=== PATIENT | female | born 1930 | race Caucasian/White ===

== ENCOUNTER 2016-07-16 18:52 | Inpatient (IN) | payer OTHER, MEDICAID ==
[2016-07-16] MEDS ORDERED: BENADRYL INJ 50 MG VIAL IVP ONE (19:12)
[2016-07-16] MEDS ORDERED: TYLENOL 325 MG TAB PO ONE (19:17)
[2016-07-16 21:29] VITALS: BMI 17.9
[2016-07-16 22:01] LABS: BASOPHILS # (AUTO) 0.1 X10^3/uL (0.0-0.1); BASOPHILS % (AUTO) 0.5 % (0.2-1.0); EOSINOPHILS % (AUTO) 0.4 % (0.9-2.9); LYMPHOCYTES # (AUTO) 0.9 X10^3/uL (1.3-2.9); MEAN CORPUSCULAR HEMOGLOBIN 19.6 pg (27.0-34.0); MEAN CORPUSCULAR HGB CONC 30.9 g/dL (33.0-35.0); MEAN CORPUSCULAR VOLUME 63.3 fL (80.0-100.0); MEAN PLATELET VOLUME 6.3 fL (7.4-11.0); MONOCYTES # (AUTO) 1.1 x10^3/uL (0.3-0.8); MONOCYTES % (AUTO) 9.5 % (0.0-13.0); NEUTROPHILS # (AUTO) 9.7 x10^3/uL (2.2-4.8); NEUTROPHILS % (AUTO) 81.6 % (42.0-75.0); PLATELET COUNT 606 X10^3/uL (150.0-450.0); WHITE BLOOD COUNT 11.8 X10^3/uL (3.6-10.0)
[2016-07-16 22:10] LABS: ALBUMIN 2.7 g/dL (3.4-5.0); CALCIUM 9.2 mg/dL (8.5-10.1); CARBON DIOXIDE 27.9 mmol/L (21-32); COR CA(FOR HYPOALB) 10.2 mg/dL (8.5-10.1); CREATININE 1.12 mg/dL (0.55-1.02); TOTAL PROTEIN 6.5 g/dL (6.4-8.2)
[2016-07-16 22:11] LABS: HEMOGLOBIN 6.1 g/dL (12.0-16.0)
[2016-07-16 22:12] LABS: HEMATOCRIT 19.6 % (36.0-47.0)
[2016-07-16 22:26] LABS: ANISOCYTOSIS 1+; HYPOCHROMASIA 3+; MICROCYTOSIS 2+; PLATELET MORPHOLOGY COMMENT NORMAL (NORMAL)
[2016-07-16 22:41] LABS: BILIRUBIN,URINE NEGATIVE (NEGATIVE); BLOOD/HEMOGLOBIN,URINE NEGATIVE (NEGATIVE); GLUCOSE, URINE NEGATIVE (NEGATIVE); KETONES,URINE NEGATIVE (NEGATIVE); LEUKOCYTE ESTERASE ,URINE 2+ (NEGATIVE); NITRITES,URINE NEGATIVE (NEGATIVE); PROTEIN,URINE 1+ (NEGATIVE); UROBILINOGEN,URINE NORMAL (NORMAL)
[2016-07-16 22:57] LABS: AMORPHOUS SEDIMENT,UR TRACE /HPF (NEGATIVE); APPEARANCE,URINE CLEAR (CLEAR); BACTERIA,URINE TRACE /HPF (NEGATIVE); COLOR,URINE YELLOW (YELLOW); MUCUS,URINE FEW /HPF (NEGATIVE); RBC,URINE 0-1 /HPF (NEGATIVE); RENAL EPITHELIAL CELLS,URINE RARE /HPF (NEGATIVE); SQUAMOUS EPITHELIAL CELL,UR FEW /HPF (NEGATIVE)
[2016-07-16] MEDS: NS 1000 ML 1,000 ML IV PRN (23:15)
[2016-07-16] MEDS: PROTONIX INJ 40 MG VIAL IVP SCH (23:15)
[2016-07-17] MEDS ORDERED: BENADRYL INJ 50 MG VIAL ONE (00:46)
[2016-07-17] MEDS ORDERED: TYLENOL 325 MG TAB PO ONE (00:46)
[2016-07-17] MEDS: NS 250 ML IV 250 ML IV PRN ×2 (00:56→21:38)
--- NOTE | 2016-07-17 03:32 | RAD ---
Chest AP portable Indication: Anemia. Comparison: December 03, 2015. Findings: There is no pneumothorax or effusion. There is no consolidation. Lungs are hyperinflated. Scarring is seen in the right upper lobe. Heart size normal. Impression: Borderline COPD change without other acute abnormality. Reported By:
[2016-07-17 09:04] LABS: BASOPHILS # (AUTO) 0.1 X10^3/uL (0.0-0.1); BASOPHILS % (AUTO) 1.5 % (0.2-1.0); EOSINOPHILS # (AUTO) 0.2 x10^3/uL (0.0-0.2); EOSINOPHILS % (AUTO) 1.7 % (0.9-2.9); HEMATOCRIT 27.5 % (36.0-47.0); HEMOGLOBIN 8.9 g/dL (12.0-16.0); LYMPHOCYTES # (AUTO) 0.9 X10^3/uL (1.3-2.9); LYMPHOCYTES % (AUTO) 9.2 % (21.0-51.0); MEAN CORPUSCULAR HEMOGLOBIN 22.1 pg (27.0-34.0); MEAN CORPUSCULAR HGB CONC 32.2 g/dL (33.0-35.0); MEAN CORPUSCULAR VOLUME 68.6 fL (80.0-100.0); MEAN PLATELET VOLUME 6.3 fL (7.4-11.0); MONOCYTES # (AUTO) 1.1 x10^3/uL (0.3-0.8); MONOCYTES % (AUTO) 10.7 % (0.0-13.0); NEUTROPHILS # (AUTO) 7.7 x10^3/uL (2.2-4.8); NEUTROPHILS % (AUTO) 76.9 % (42.0-75.0); PLATELET COUNT 496 X10^3/uL (150.0-450.0); RED BLOOD COUNT 4.01 X10^6/uL (3.5-5.4); RED CELL DISTRIBUTION WIDTH 20.8 % (11.6-16.5); WHITE BLOOD COUNT 10.1 X10^3/uL (3.6-10.0)
[2016-07-17 09:16] LABS: ALANINE AMINOTRANSFERASE 14 Units/L (12-78); ALBUMIN 2.5 g/dL (3.4-5.0); ALKALINE PHOSPHATASE 90 Units/L (46-116); ASPARTATE AMINO TRANSFERASE 14 Units/L (15-37); BLOOD UREA NITROGEN 25 mg/dL (7-18); CALCIUM 8.8 mg/dL (8.5-10.1); CARBON DIOXIDE 27.2 mmol/L (21-32); CHLORIDE 103 mmol/L (98-107); CREATININE 1.08 mg/dL (0.55-1.02); GLUCOSE 91 mg/dL (65-99); SODIUM 136 mmol/L (136-145); TOTAL PROTEIN 6.3 g/dL (6.4-8.2); eGFR BLACK RACES > 60 (>60); eGFR NON BLACK RACES 51 (>60)
[2016-07-17 09:19] LABS: ANISOCYTOSIS 1+; HYPOCHROMASIA 1+; MICROCYTOSIS 1+; PLATELET MORPHOLOGY COMMENT NORMAL (NORMAL)
[2016-07-17] MEDS: PROTONIX INJ 40 MG VIAL IVP SCH ×2 (09:21→21:38)
--- NOTE | 2016-07-17 13:15 | DR.H&P ---
H&P - History & Physical for Day of: H&P Date: 07/16/16 - Chief Complaint Chief Complaint: patient is a 85-year-old white female who was admitted one day ago with severe anemia. Patient denies any pain or history of anemia. Plan to type cross and transfuse 2 units packed red blood cells repeat postinfusion H&H. - Allergies Allergies/Adverse Reactions: Allergies Allergy/AdvReac Type Severity Reaction Status Date / Time Codeine Allergy Verified 09/19/15 16:06 Penicillins Allergy Verified 09/19/15 16:06 - History of Present Illness History of Present Illness: see above - Past Medical History Past Medical History: Alzheimers, Anemia, Arthritis, Dementia - Past Surgical History Surgical History: Appendectomy, Cholecystectomy, Hysterectomy, Joint Replacement , Mastectomy, Other - Family History Family Medical History: [place], Coronary Artery Disease, Sudden Cardiac , Hypertension - Social History Does patient currently use any type of tobacco product: No Have you used tobacco products in the last 12 months: No Type of Tobacco Use: Smokeless Alcohol Use: None Drug Use: None - Medications Home Medications: Acetaminophen [Tylenol] 650 mg PO Q4H PRN 07/16/16 [History Confirmed 07/16/16] Cyanocobalamin 1,000 mcg IM MONTHLY 07/16/16 [History Confirmed 07/16/16] Ferrous Gluconate [Iron 27] 240 mg PO BID 07/16/16 [History Confirmed 07/16/16] Omeprazole [PRILOSEC 20 MG *] 20 mg PO HS 07/16/16 [History Confirmed 07/16/16] - Review of Systems Constitutional: Weakness Eyes: No Symptoms Reported ENT: No Symptoms Reported Respiratory: Shortness of Breath Cardiovascular: No Symptoms Reported Gastrointestinal: No Symptoms Reported Genitourinary: No Symptoms Reported Musculoskeletal: Back Pain, Leg Pain Skin: No Symptoms Reported Neurological: No Symptoms Reported - Physical Exam Vital Signs: Temperature 98.6 F Pulse Rate [Bilateral Radial] 78 Respiratory Rate 20 Blood Pressure [Right Arm] 121/58 Blood Pressure [Left Arm] 127/62 Blood Pressure 117/58 O2 Sat by Pulse Oximetry 99 Oriented: Normal Eyes: Normal Ear: Normal Nose: Normal Throat: Normal Respiratory: RLL Diminished, LLL Diminished Cardiovascular: negative: Edema : Normal Tenderness: LUQ, Epigastric Skin: Decreased [place]ur Musculoskeletal: Back:Lumbar Mood Description: Calm Speech Pattern: Clear, Appropriate - Assessment/Plan (1) Anemia Qualifiers: Anemia type: A Iron deficiency anemia type: I Vitamin B12 deficiency anemia type: V Folate deficiency anemia type: F Bone marrow failure anemia type: B Hemolytic anemia type: H Other causes of anemia: O Status: Acute Plan: ADMIT, TYPE AND CROSS AND TRANFUSE PRBC. POST INFUSION H& h. REPEAT AM LABS, CXR ON ADMISSION (2) GERD (gastroesophageal reflux disease) Qualifiers: Esophagitis presence: E Status: Chronic (3) Hypothyroidism Qualifiers: Hypothyroidism type: H Status: Chronic (4) Osteoarthritis Qualifiers: Osteoarthritis location: O Osteoarthritis type: O Spinal region: S Spinal osteoarthritis complication: S Laterality: L Status: Chronic
--- NOTE | 2016-07-17 13:18 | PCM.PROG ---
Progress Note - Progress Note for Day of Date: 07/17/16 - Subjective Subjective: patient is a 85-year-old white female who was admitted one day ago with marked anemia. Patient is status post transfusion, patient had a repeat H& H this morning at 8:30 results pending. Continue PPI therapy, Hemoccult, anemia panel - Past Medical Family Social History Past Med/Fam/Surg Hx: No changes since H&P Allergies: Allergies Codeine Allergy (Verified 09/19/15 16:06) Penicillins Allergy (Verified 09/19/15 16:06) - Review of Systems ROS: No change since H&P - Vital Signs and I&O's Vital Signs: Temperature 98.6 F Pulse Rate [Bilateral Radial] 78 Respiratory Rate 20 Blood Pressure [Right Arm] 121/58 Blood Pressure [Left Arm] 127/62 Blood Pressure 117/58 O2 Sat by Pulse Oximetry 99 Intake and Output: Intake & Output 07/15/16 07/16/16 07/17/16 07/18/16 11:59 11:59 11:59 11:59 Intake Total 100 Balance 100 - Physical Exam Oriented: Normal Eyes: Normal Ear: Normal Nose: Normal Throat: Normal Cardiovascular: negative: Edema : Normal Tenderness: LUQ, Epigastric Skin: Decreased Turgur Musculoskeletal: Back:Lumbar Mood Description: Calm Speech Pattern: Clear, Appropriate - Laboratory and Diagnostics Result Diagrams: 07/17/16 08:40 07/17/16 08:40 Labs: Laboratory WBC 10.1 X10^3/uL (3.6-10.0) H 07/17/16 08:40 RBC 4.01 X10^6/uL (3.5-5.4) 07/17/16 08:40 Hgb 8.9 g/dL (12.0-16.0) L 07/17/16 08:40 Hct 27.5 % (36.0-47.0) L 07/17/16 08:40 MCV 68.6 fL (80.0-100.0) L 07/17/16 08:40 MCH 22.1 pg (27.0-34.0) L 07/17/16 08:40 MCHC 32.2 g/dL (33.0-35.0) L 07/17/16 08:40 RDW 20.8 % (11.6-16.5) H 07/17/16 08:40 Plt Count 496 X10^3/uL (150.0-450.0) H 07/17/16 08:40 Plt Count Comment Adequate (ADEQUATE) 07/17/16 08:40 MPV 6.3 fL (7.4-11.0) L 07/17/16 08:40 Neut % 76.9 % (42.0-75.0) H 07/17/16 08:40 Lymph % 9.2 % (21.0-51.0) L 07/17/16 08:40 [place] % 10.7 % (0.0-13.0) 07/17/16 08:40 Eos % 1.7 % (0.9-2.9) 07/17/16 08:40 Baso % 1.5 % (0.2-1.0) H 07/17/16 08:40 Neut # 7.7 x10^3/uL (2.2-4.8) H 07/17/16 08:40 Lymph # 0.9 X10^3/uL (1.3-2.9) L 07/17/16 08:40 [place] # 1.1 x10^3/uL (0.3-0.8) H 07/17/16 08:40 Eos # 0.2 x10^3/uL (0.0-0.2) 07/17/16 08:40 Baso # 0.1 X10^3/uL (0.0-0.1) 07/17/16 08:40 Absolute Nucleated RBC 0.0 /100WBC 07/17/16 08:40 Plt Morphology Comment Normal (NORMAL) 07/17/16 08:40 RBC Morphology Abnormal (NORMAL) A 07/17/16 08:40 Hypochromasia 1+ A 07/17/16 08:40 Anisocytosis 1+ A 07/17/16 08:40 Microcytosis 1+ A 07/17/16 08:40 Sodium 136 mmol/L (136-145) 07/17/16 08:40 Corrected Sodium TNP 07/17/16 08:40 Potassium 4.0 mmol/L (3.5-5.1) 07/17/16 08:40 Chloride 103 mmol/L (98-107) 07/17/16 08:40 Carbon Dioxide 27.2 mmol/L (21-32) 07/17/16 08:40 BUN 25 mg/dL (7-18) H 07/17/16 08:40 Creatinine 1.08 mg/dL (0.55-1.02) H 07/17/16 08:40 Est GFR (MDRD) Af Amer > 60 (>60) 07/17/16 08:40 Est GFR (MDRD) Non-Af 51 (>60) L 07/17/16 08:40 Glucose 91 mg/dL (65-99) 07/17/16 08:40 Calcium 8.8 mg/dL (8.5-10.1) 07/17/16 08:40 Corrected Calcium 10.0 mg/dL (8.5-10.1) 07/17/16 08:40 Total Bilirubin 1.80 mg/dL (0.2-1.0) H 07/17/16 08:40 AST 14 Units/L (15-37) L 07/17/16 08:40 ALT 14 Units/L (12-78) 07/17/16 08:40 Alkaline Phosphatase 90 Units/L (46-116) 07/17/16 08:40 Total Protein 6.3 g/dL (6.4-8.2) L 07/17/16 08:40 Albumin 2.5 g/dL (3.4-5.0) L 07/17/16 08:40 Globulin 3.8 g/dL (2.5-4.5) 07/17/16 08:40 Albumin/Globulin Ratio 0.7 Ratio (1.1-2.1) L 07/17/16 08:40 Specimen Type Clean catch urine 07/16/16 22:33 Urine Color Yellow (YELLOW) 07/16/16 22:33 Urine Appearance Clear (CLEAR) 07/16/16 22:33 Urine pH 7.0 (5.0 - 8.0) 07/16/16 22:33 Ur Specific [place] 1.005 (1.000-1.030) 07/16/16 22:33 Urine Protein 1+ (NEGATIVE) 07/16/16 22:33 Urine Glucose (UA) Negative (NEGATIVE) 07/16/16 22:33 Urine Ketones Negative (NEGATIVE) 07/16/16 22:33 Urine Occult Blood Negative (NEGATIVE) 07/16/16 22:33 Urine Nitrite Negative (NEGATIVE) 07/16/16 22:33 Urine Bilirubin Negative (NEGATIVE) 07/16/16 22:33 Urine Urobilinogen Normal (NORMAL) 07/16/16 22:33 Ur Leukocyte Esterase 2+ (NEGATIVE) 07/16/16 22:33 Urine RBC 0-1 /HPF (NEGATIVE) 07/16/16 22:33 Urine WBC 10-12 /HPF (NEGATIVE) 07/16/16 22:33 Ur Squamous Epith Cells Few /HPF (NEGATIVE) 07/16/16 22:33 Ur Renal Epithelial Cell Rare /HPF (NEGATIVE) 07/16/16 22:33 Amorphous Sediment Trace /HPF (NEGATIVE) 07/16/16 22:33 Urine Bacteria Trace /HPF (NEGATIVE) 07/16/16 22:33 Urine Mucus Few /HPF (NEGATIVE) 07/16/16 22:33 Ur Culture Indicated? Yes/culture set up 07/16/16 22:33 Blood Type O NEGATIVE 07/16/16 21:45 Antibody Screen Negative 07/16/16 21:45 Crossmatch See Detail 07/16/16 21:45 - Plan (1) Anemia Status: Acute Qualifiers: Anemia type: A Iron deficiency anemia type: I Vitamin B12 deficiency anemia type: V Folate deficiency anemia type: F Bone marrow failure anemia type: B Hemolytic anemia type: H Other causes of anemia: O Plan: s/p transfusion, continued weakness, occult stool and anemia panel. REPEAT AM LABS, CXR ON ADMISSION (2) GERD (gastroesophageal reflux disease) Status: Chronic Qualifiers: Esophagitis presence: E (3) Hypothyroidism Status: Chronic Qualifiers: Hypothyroidism type: H (4) Osteoarthritis Status: Chronic Qualifiers: Osteoarthritis location: O Osteoarthritis type: O Spinal region: S Spinal osteoarthritis complication: S Laterality: L
[2016-07-17 15:40] LABS: HEMATOCRIT 27.7 % (36.0-47.0); HEMOGLOBIN 8.9 g/dL (12.0-16.0)
[2016-07-17] MEDS: NS 1000 ML 1,000 ML IV PRN ×2 (17:15→21:39)
[2016-07-17] MEDS ORDERED: DIPRIVAN VIAL 10 ML ONE (17:22)
[2016-07-17] MEDS ORDERED: XYLOCAINE-MPF 1% ONE (17:22)
[2016-07-17] MEDS ORDERED: XYLOCAINE 2 % (PLAIN) ONE (17:22)
[2016-07-18 06:23] LABS: BASOPHILS % (AUTO) 0.6 % (0.2-1.0); EOSINOPHILS # (AUTO) 0.2 x10^3/uL (0.0-0.2); HEMATOCRIT 27.3 % (36.0-47.0); HEMOGLOBIN 8.7 g/dL (12.0-16.0); LYMPHOCYTES # (AUTO) 1.1 X10^3/uL (1.3-2.9); LYMPHOCYTES % (AUTO) 14.3 % (21.0-51.0); MEAN CORPUSCULAR HEMOGLOBIN 21.8 pg (27.0-34.0); MEAN CORPUSCULAR HGB CONC 31.7 g/dL (33.0-35.0); MEAN CORPUSCULAR VOLUME 68.7 fL (80.0-100.0); MEAN PLATELET VOLUME 6.5 fL (7.4-11.0); MONOCYTES # (AUTO) 0.9 x10^3/uL (0.3-0.8); MONOCYTES % (AUTO) 11.6 % (0.0-13.0); NEUTROPHILS # (AUTO) 5.5 x10^3/uL (2.2-4.8); NEUTROPHILS % (AUTO) 71.5 % (42.0-75.0); PLATELET COUNT 560 X10^3/uL (150.0-450.0); RED BLOOD COUNT 3.98 X10^6/uL (3.5-5.4); RED CELL DISTRIBUTION WIDTH 21.1 % (11.6-16.5); WHITE BLOOD COUNT 7.7 X10^3/uL (3.6-10.0)
[2016-07-18 06:30] LABS: BLOOD UREA NITROGEN 18 mg/dL (7-18); CALCIUM 8.9 mg/dL (8.5-10.1); CHLORIDE 104 mmol/L (98-107); CREATININE 1.02 mg/dL (0.55-1.02); GLUCOSE 89 mg/dL (65-99); SODIUM 136 mmol/L (136-145); eGFR BLACK RACES > 60 (>60); eGFR NON BLACK RACES 55 (>60)
[2016-07-18 07:31] LABS: ANISOCYTOSIS 1+; HYPOCHROMASIA 2+; MICROCYTOSIS 1+; PLATELET MORPHOLOGY COMMENT NORMAL (NORMAL)
[2016-07-18] MEDS ORDERED: ULTRAM PO PRN (08:23)
[2016-07-18] MEDS ORDERED: ACETAMINOPHEN 650 MG PO PRN (08:23)
[2016-07-18] MEDS ORDERED: DEXFERRUM or INFED 250 MG in NS 500 ML IV 500 ML IV ONE (08:26)
[2016-07-18] MEDS ORDERED: TYLENOL 325 MG TAB PO PRN (08:58)
[2016-07-18] MEDS ORDERED: CLARITIN PO SCH (09:00)
[2016-07-18] MEDS ORDERED: CELEXA PO SCH (09:00)
[2016-07-18] MEDS ORDERED: TAB-A-VITE PO SCH (09:00)
[2016-07-18] MEDS ORDERED: OSCAL+D or CALTRATE+D PO SCH ×2 (09:00→21:00)
[2016-07-18] MEDS ORDERED: ROCEPHIN VIAL 1 GM 1 GM in NS 50 ML IV + SPIKE MINIBAG* 50 ML IV SCH (09:00)
[2016-07-18] MEDS ORDERED: PATIENT'S HOME MEDICATION (Citalopram Hydrobromide [Celexa 10 Mg] 10 MG) PO SCH (09:00)
[2016-07-18] MEDS: PROTONIX INJ 40 MG VIAL IVP SCH (09:32)
[2016-07-18] MEDS ORDERED: DEXFERRUM or INFED 25 MG in NS 100 ML IV 100 ML IV ONE (10:00)
[2016-07-18] MEDS ORDERED: DEXFERRUM or INFED 25 MG in NS 100 ML IV 100 ML IV SCH (10:00)
[2016-07-18] MEDS ORDERED: DEXFERRUM or INFED 250 MG in NS 500 ML IV 500 ML IV SCH (11:00)
[2016-07-18] MEDS: COLACE CAP 100 MG PO SCH ×2 (11:46→16:38)
--- NOTE | 2016-07-18 13:08 | PCM.DCPLAN ---
Discharge Summary - Admission Date Date of Admission: 07/16/16 - Discharge Date Discharge Date: 07/18/16 - Admission Diagnoses (1) Anemia Status: Acute (2) GERD (gastroesophageal reflux disease) Status: Chronic (3) Hypothyroidism Status: Chronic (4) Osteoarthritis Status: Chronic - Discharge Diagnoses Discharge Diagnosis: SAME ADMISSION - Discharge Medications Discharge Medications: Acetaminophen [Tylenol] 650 mg PO Q4H PRN 07/16/16 [History] Cyanocobalamin 1,000 mcg IM MONTHLY 07/16/16 [History] Ferrous Gluconate [Iron 27] 240 mg PO BID 07/16/16 [History] Omeprazole [PRILOSEC 20 MG *] 20 mg PO HS 07/16/16 [History] - Hospital Course Vital Signs: Temperature 98.4 F Pulse Rate [Left Brachial] 90 Pulse Rate [Bilateral Radial] 78 Respiratory Rate 20 Blood Pressure [Right Arm] 126/60 Blood Pressure [Left Arm] 133/62 Blood Pressure 117/58 O2 Sat by Pulse Oximetry 99 Latest Lab Results: Laboratory Last Values WBC 7.7 X10^3/uL (3.6-10.0) 07/18/16 05:37 RBC 3.98 X10^6/uL (3.5-5.4) 07/18/16 05:37 Hgb 8.7 g/dL (12.0-16.0) L 07/18/16 05:37 Hct 27.3 % (36.0-47.0) L 07/18/16 05:37 MCV 68.7 fL (80.0-100.0) L 07/18/16 05:37 MCH 21.8 pg (27.0-34.0) L 07/18/16 05:37 MCHC 31.7 g/dL (33.0-35.0) L 07/18/16 05:37 RDW 21.1 % (11.6-16.5) H 07/18/16 05:37 Plt Count 560 X10^3/uL (150.0-450.0) H 07/18/16 05:37 Plt Count Comment Increased (ADEQUATE) A 07/18/16 05:37 MPV 6.5 fL (7.4-11.0) L 07/18/16 05:37 Neut % 71.5 % (42.0-75.0) 07/18/16 05:37 Lymph % 14.3 % (21.0-51.0) L 07/18/16 05:37 [place] % 11.6 % (0.0-13.0) 07/18/16 05:37 Eos % 2.0 % (0.9-2.9) 07/18/16 05:37 Baso % 0.6 % (0.2-1.0) 07/18/16 05:37 Neut # 5.5 x10^3/uL (2.2-4.8) H 07/18/16 05:37 Lymph # 1.1 X10^3/uL (1.3-2.9) L 07/18/16 05:37 [place] # 0.9 x10^3/uL (0.3-0.8) H 07/18/16 05:37 Eos # 0.2 x10^3/uL (0.0-0.2) 07/18/16 05:37 Baso # 0.0 X10^3/uL (0.0-0.1) 07/18/16 05:37 Absolute Nucleated RBC 0.0 /100WBC 07/18/16 05:37 Plt Morphology Comment Normal (NORMAL) 07/18/16 05:37 RBC Morphology Abnormal (NORMAL) A 07/18/16 05:37 Hypochromasia 2+ A 07/18/16 05:37 Anisocytosis 1+ A 07/18/16 05:37 Microcytosis 1+ A 07/18/16 05:37 Sodium 136 mmol/L (136-145) 07/18/16 05:37 Corrected Sodium TNP 07/18/16 05:37 Potassium 3.9 mmol/L (3.5-5.1) 07/18/16 05:37 Chloride 104 mmol/L (98-107) 07/18/16 05:37 Carbon Dioxide 24.0 mmol/L (21-32) 07/18/16 05:37 BUN 18 mg/dL (7-18) 07/18/16 05:37 Creatinine 1.02 mg/dL (0.55-1.02) 07/18/16 05:37 Est GFR (MDRD) Af Amer > 60 (>60) 07/18/16 05:37 Est GFR (MDRD) Non-Af 55 (>60) L 07/18/16 05:37 Glucose 89 mg/dL (65-99) 07/18/16 05:37 Calcium 8.9 mg/dL (8.5-10.1) 07/18/16 05:37 Corrected Calcium 10.0 mg/dL (8.5-10.1) 07/17/16 08:40 Iron 7 ug/dL (50-175) L 07/16/16 21:45 Transferrin 234 mg/dL (202-364) 07/16/16 21:45 Ferritin 17 ng/mL (8-252) 07/16/16 21:45 Total Bilirubin 1.80 mg/dL (0.2-1.0) H 07/17/16 08:40 AST 14 Units/L (15-37) L 07/17/16 08:40 ALT 14 Units/L (12-78) 07/17/16 08:40 Alkaline Phosphatase 90 Units/L (46-116) 07/17/16 08:40 Total Protein 6.3 g/dL (6.4-8.2) L 07/17/16 08:40 Albumin 2.5 g/dL (3.4-5.0) L 07/17/16 08:40 Globulin 3.8 g/dL (2.5-4.5) 07/17/16 08:40 Albumin/Globulin Ratio 0.7 Ratio (1.1-2.1) L 07/17/16 08:40 Vitamin B12 800 pg/mL (193-986) 07/16/16 21:45 Folate 13.6 ng/mL (>8.6) 07/16/16 21:45 Specimen Type Clean catch urine 07/16/16 22:33 Urine Color Yellow (YELLOW) 07/16/16 22:33 Urine Appearance Clear (CLEAR) 07/16/16 22:33 Urine pH 7.0 (5.0 - 8.0) 07/16/16 22:33 Ur Specific [place] 1.005 (1.000-1.030) 07/16/16 22:33 Urine Protein 1+ (NEGATIVE) 07/16/16 22:33 Urine Glucose (UA) Negative (NEGATIVE) 07/16/16 22:33 Urine Ketones Negative (NEGATIVE) 07/16/16 22:33 Urine Occult Blood Negative (NEGATIVE) 07/16/16 22:33 Urine Nitrite Negative (NEGATIVE) 07/16/16 22:33 Urine Bilirubin Negative (NEGATIVE) 07/16/16 22:33 Urine Urobilinogen Normal (NORMAL) 07/16/16 22:33 Ur Leukocyte Esterase 2+ (NEGATIVE) 07/16/16 22:33 Urine RBC 0-1 /HPF (NEGATIVE) 07/16/16 22:33 Urine WBC 10-12 /HPF (NEGATIVE) 07/16/16 22:33 Ur Squamous Epith Cells Few /HPF (NEGATIVE) 07/16/16 22:33 Ur Renal Epithelial Cell Rare /HPF (NEGATIVE) 07/16/16 22:33 Amorphous Sediment Trace /HPF (NEGATIVE) 07/16/16 22:33 Urine Bacteria Trace /HPF (NEGATIVE) 07/16/16 22:33 Urine Mucus Few /HPF (NEGATIVE) 07/16/16 22:33 Ur Culture Indicated? Yes/culture set up 07/16/16 22:33 Blood Type O NEGATIVE 07/16/16 21:45 Antibody Screen Negative 07/16/16 21:45 Crossmatch See Detail 07/16/16 21:45 Hospital Course: Patient is a 85-year-old white female who was a direct admit from [facility] with acute findings of anemia. Patient's hemoglobin on admission was 6.1/hematocrit 19.6. Patient was type crossed matched for 2 units and transfused. Posttransfusion hemoglobin was 8.9. Patient is maintained hemoglobin this morning 8.7 and hematocrit 27.3. Patient had anemia panel revealing an iron level of 7. Patient was given IV infusion of iron. Plan to continue by mouth iron therapy and a repeat ferritin level in 1 month .Patient was held nothing by mouth and had an EGD per Dr. Carlson with no findings of upper GI bleed. Patient was medicated with protonIV IV while inpatient. Patient is much improved this morning patient's up in wheelchair in hallway active. Plan to discharge patient back to [facility] today to resume home medications and have a repeat CBC in 1 week patient to follow with Dr. Carlson for routine visit - Discharge Plan Disposition: 01 HOME, SELF-CARE Condition: Stable Prescriptions: Ferrous Sulfate [FERROUS SULFATE *] 325 mg PO DAILY #30 tab - Follow ups/Referrals Follow ups/Referrals: MARISABEL CARLSON [Primary Care Provider] - - Instructions Additional Instructions: d[place]c to [place] [facility] today to resume home meds repeat cbc in one week
[2016-07-18 16:30] VITALS: BP 125/60
[2016-07-18] MEDS ORDERED: MIRALAX POWDER (255 GM BTL) PO SCH (21:00)
[2016-07-18] MEDS ORDERED: PriLOSEC PO SCH (21:00)
[2016-07-18] MEDS ORDERED: ARICEPT TAB 10 MG PO SCH (21:00)
== END 2016-07-18 19:55 | DRG 812 ==
LOC: MED/SURG 18:52
PROVIDERS: ADMIT Internal Medicine; ATTEND Internal Medicine
PROC: 30233N1 Transfusion of Nonautologous Red Blood Cells into Peripheral Vein, Percutaneous Approach (ICD-10-PCS; 2016-07-17)
PROC: 30233N1 Transfusion of Nonautologous Red Blood Cells into Peripheral Vein, Percutaneous Approach (ICD-10-PCS; 2016-07-17)
PROC: 0DJ08ZZ Inspection of Upper Intestinal Tract, Via Natural or Artificial Opening Endoscopic (ICD-10-PCS; principal; 2016-07-17 17:00)
DX: D64.89 Other specified anemias (principal); M47.898 Other spondylosis, sacral and sacrococcygeal region; M13.89 Other specified arthritis, multiple sites; K21.9 Gastro-esophageal reflux disease without esophagitis; E03.8 Other specified hypothyroidism; K29.60 Other gastritis without bleeding; K44.9 Diaphragmatic hernia without obstruction or gangrene; K20.8 Other esophagitis; R26.89 Other abnormalities of gait and mobility
CPT/HCPCS: 36415; 36430; 71010; 80048; 80053; 81001; 82607; 82728; 82746; 83540; 84466; 85014; 85018; 85025; 86850; 86900; 86901; 86922; 87086; 99100; A4222; C9113; P9016; A4217; J0696; J1200; J2001; J3490